=== PATIENT | male | born 1995 | race Caucasian/White ===

== ENCOUNTER 2020-12-30 21:11 | Emergency (ER) | payer OTHER ==
[2020-12-30] MEDS ORDERED: EPIPEN 2-P0.3 MG/0.3 SC (21:58)
== END 2020-12-30 22:23 | disposition home or self-care (01) ==
LOC: FER 21:11
DX: T61.11XA Scombroid fish poisoning, accidental (unintentional), initial encounter (principal)
CPT/HCPCS: 99282